=== PATIENT | male | born 1985 | race Two or more races ===

== ENCOUNTER 2024-05-07 16:13 | Emergency (ER) | payer BC, OTHER ==
[~2024-05-07] VITALS: Ht 188 cm; Wt 108.4 kg
[2024-05-07 18:02] VITALS: BP 129/70; PULSE 79; RESP 16; TEMP 98; O2SAT 97
[2024-05-07] MEDS ORDERED: IBUP-1455 PO (19:15)
[2024-05-07] MEDS ORDERED: MUPI2OIN2 EX (19:15)
[2024-05-07] MEDS ORDERED: CEPH500T PO (19:15)
[2024-05-07] MEDS: NEOMYCIN-BACITRACIN-POLYM UNITDOSE PKG TOP OINT TOP ONE (19:19)
[2024-05-07] MEDS: TETANUS-DIPTH-ACEL PERTUSSIS 0.5ML SYR Tdap IM ONE (19:20)
[2024-05-07] MEDS: IBUPROFEN 800 MG TAB PO ONE (19:20)
== END 2024-05-07 19:21 | disposition home or self-care (01) ==
LOC: ER 16:13
DX: S83.8X1A Sprain of other specified parts of right knee, initial encounter (principal); M25.462 Effusion, left knee; M25.461 Effusion, right knee; Z79.899 Other long term (current) drug therapy; W18.39XA Other fall on same level, initial encounter; Y93.61 Activity, american tackle football; Y92.89 Other specified places as the place of occurrence of the external cause; Y99.8 Other external cause status
CPT/HCPCS: 29505; 73562; 90471; 90715